=== PATIENT | male | born 1980 | race African-American/Black ===

== ENCOUNTER 2022-11-01 16:06 | Emergency (ER) | payer OTHER ==
[2022-11-01] MEDS ORDERED: NA CHLORIDE 0.9% 1,000 ML ONE (17:12)
[2022-11-01] MEDS ORDERED: FENTANYL CITR 100 MCG/2 ML ONE (17:12)
[2022-11-01 17:26] LABS: Absolute Lymphocytes (CBC) 1.5 K/uL (0.7-4.9); Hematocrit 39.9 % (39.6-49.0); Lymphocytes % 14.9 % (15.3-44.8); MCV 92.5 fL (80-100); MPV 8.1 fL (7.6-11.3); RBC Red Blood Cell Count 4.31 M/uL (4.33-5.43)
[2022-11-01 17:40] LABS: Potassium 3.7 mEq/L (3.5-5.1)
[2022-11-01] MEDS ORDERED: LIDOCAINE 1% W/EPI 1:100,000 50 ML MDV ONE ×2 (17:44→18:31)
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
[2022-11-01] MEDS ORDERED: HYDROCODONE/APAP 7.5/325 MG TAB ONE (19:16)
[2022-11-01] MEDS ORDERED: IBUPROFEN 400 MG TAB ONE (19:17)
[2022-11-01 20:01] VITALS: TEMP 98.6
[2022-11-01 20:53] VITALS: BP 162/98; O2SAT 98
== END 2022-11-01 19:43 | disposition home or self-care (01) ==
LOC: ER 16:06
PROC: 0HQ4XZZ Repair Neck Skin, External Approach (ICD-10-PCS; principal; 2022-11-01)
DX: Z04.71 Encounter for examination and observation following alleged adult physical abuse (principal); S01.81XA Laceration without foreign body of other part of head, initial encounter
CPT/HCPCS: 96361; 85025; 80048; 36415; 86900; 86850; 86901; 70450; 72125; 70491; 96374; 99285; 12011; Q9967; J3010; J7030